=== PATIENT | male | born 1945 | race Hispanic/Latino ===

== ENCOUNTER → 2017-09-28 | Outpatient (CLI) | payer MEDICARE | END | disposition home or self-care (01) | LOC: RAH 10:45 | PROVIDERS: ATTEND Family Medicine | DX: M54.5 Low back pain (principal) | CPT/HCPCS: 72148 ==

== ENCOUNTER 2020-04-14 16:00 | Inpatient (IN) | payer MEDICARE, OTHER ==
[~2020-04-14] VITALS: Ht 160 cm; Wt 72.8 kg
[2020-04-14 19:28] LABS: APPEARANCE,URINE CLOUDY (CLEAR); BILIRUBIN,URINE NEGATIVE (NEGATIVE); COLOR,URINE YELLOW (YELLOW); GLUCOSE, URINE (UA) NEGATIVE (NEGATIVE); KETONES,URINE NEGATIVE (NEGATIVE); LEUKOCYTE ESTERASE ,URINE NEGATIVE (NEGATIVE); NITRATE,URINE NEGATIVE (NEGATIVE); OCCULT BLOOD,URINE LARGE (NEGATIVE); PROTEIN,URINE >=300 mg/dL (NEGATIVE)
[2020-04-14 19:38] LABS: BACTERIA,URINE Few /HPF (None Seen); MUCUS,URINE Few LPF (None Seen); RBC,URINE >100 /HPF (0-1); SQUAMOUS EPITHELIAL CELL,UR 0-2 /HPF (0-2)
[2020-04-14 20:19] LABS: ALBUMIN 2.7 g/dL (3.5-5.0); BILIRUBIN,TOTAL 0.3 mg/dL (0.2-1.0); CREATININE 1.6 mg/dL (0.5-1.5); TOTAL PROTEIN, SERUM 7.4 g/dL (6.0-8.3)
[2020-04-14 20:30] LABS: BASOPHILS % (AUTO) 0.8 % (0.0-5.0); EOSINOPHILS % (AUTO) 0.2 % (0.0-8.0); HEMATOCRIT 40.4 % (42-54); LYMPHOCYTES % (AUTO) 25.4 % (21.0-51.0); MEAN CORPUSCULAR HEMOGLOBIN 30.9 pg (27.0-33.0); MEAN CORPUSCULAR HGB CONC 34.2 g/dL (32.0-36.0); MEAN CORPUSCULAR VOLUME 90.4 fL (79-99); MONOCYTES % (AUTO) 11.3 % (3.0-13.0); NEUTROPHILS % (AUTO) 61.5 % (40.0-77.0); PLATELET COUNT (AUTO) 300 K/uL (130-400); PROTHROMBIN TIME 10.4 SEC (9.6-11.6); RED BLOOD CELL COUNT(AUTO) 4.47 MIL/uL (4.50-6.20); RED CELL DISTRIBUTION WIDTH 13.5 % (11.0-15.5); WHITE BLOOD COUNT (AUTO) 8.4 K/uL (4.8-10.8)
[2020-04-14 20:31] LABS: INR 0.96 (0.85-1.15); PARTIAL THROMBOPLASTIN TIME 28.5 SEC (26.3-35.5)
[2020-04-14] MEDS ORDERED: HYDRALAZINE HCL 20 MG/ML VIAL ONE (21:05)
[2020-04-14] MEDS ORDERED: MORPHINE SULFATE 2 MG/ML 1ML SYG ONE (21:06)
[2020-04-14] MEDS ORDERED: HYDRALAZINE HCL 20 MG/ML VIAL IV PRN (21:15)
[2020-04-14] MEDS ORDERED: MORPHINE SULFATE 2 MG/ML 1ML SYG IVP PRN (21:15)
[2020-04-14] MEDS: SODIUM CHLORIDE 0.9% 1000ML 1,000 ML IV SCH (21:33)
[2020-04-14] MEDS ORDERED: MAG HYDROX/AL HYDROX/SIMETH ES 30 ML SUSP UDCUP PO PRN (21:45)
[2020-04-14] MEDS ORDERED: MAG HYDROX/AL HYDROX/SIMETH 30 ML, LIDOCAINE HCL 2% VISCOUS 30 ML, DIPHENHYDRAMINE HCL ... PO PRN ×3 (21:45)
[2020-04-14] MEDS ORDERED: LIDOCAINE HCL 2% VISCOUS 30 ML, MAG HYDROX/AL HYDROX/SIMETH 30 ML, BELLADONNA-PHENOBARB... PO PRN ×3 (21:45)
[2020-04-14] MEDS ORDERED: NITROGLYCERIN 0.4 MG SL TAB SL PRN (21:45)
[2020-04-14] MEDS ORDERED: ONDANSETRON HCL 4 MG/2 ML VIAL IV PRN (21:45)
[2020-04-14] MEDS: CEFTRIAXONE SODIUM 1 GM IV SCH (21:45)
[2020-04-14] MEDS ORDERED: MORPHINE SULFATE 4 MG/1ML SYG IV PRN (21:45)
[2020-04-14] MEDS ORDERED: ZOLPIDEM TARTRATE 5 MG TAB PO PRN (21:45)
[2020-04-14] MEDS ORDERED: LACTULOSE 20 GM/30 ML UDCUP PO PRN (21:45)
[2020-04-14] MEDS ORDERED: DiphenhydrAMINE HCL 50 MG/ML VIAL IV PRN (21:45)
[2020-04-14] MEDS ORDERED: GUAIFENESIN-DM 200/20 MG 10 ML PO PRN (21:45)
[2020-04-14] MEDS ORDERED: MORPHINE SULFATE 2 MG/ML 1ML SYG IV PRN (21:45)
[2020-04-14] MEDS ORDERED: ACETAMINOPHEN 325 MG TAB PO PRN ×2 (21:45)
[2020-04-14] MEDS ORDERED: DIPHENHYDRAMINE HCL 25 MG CAPSULE PO PRN (21:45)
[2020-04-14] MEDS ORDERED: FAMOTIDINE/PF 20 MG/2 ML VIAL IV ONE (23:00)
[2020-04-14] MEDS ORDERED: CEFTRIAXONE SODIUM 1 GM ONE (23:00)
[2020-04-14] MEDS ORDERED: SODIUM CHLORIDE 0.9% 50 ML IV ONE (23:02)
[2020-04-15] MEDS ORDERED: MORPHINE SULFATE 4 MG/1ML SYG ONE (00:47)
[2020-04-15] MEDS: SODIUM CHLORIDE 0.9% 1000ML 1,000 ML IV SCH (05:33)
[2020-04-15] MEDS ORDERED: DEXAMETHASONE 4 MG TAB ONE (06:27)
[2020-04-15] MEDS ORDERED: AZITHROMYCIN 250 MG TABLET PO ONE (06:28)
[2020-04-15] MEDS: INSULIN LISPRO 100 UNIT/ML 3ML SQ SCH ×4 (07:30→20:45)
[2020-04-15] MEDS: FAMOTIDINE/PF 20 MG/2 ML VIAL IV SCH ×2 (09:00→20:44)
[2020-04-15 10:06] LABS: BASOPHILS % (AUTO) 0.6 % (0.0-5.0); EOSINOPHILS % (AUTO) 1.2 % (0.0-8.0); HEMATOCRIT 38.3 % (42-54); LYMPHOCYTES % (AUTO) 14.2 % (21.0-51.0); MEAN CORPUSCULAR HEMOGLOBIN 30.3 pg (27.0-33.0); MEAN CORPUSCULAR HGB CONC 33.7 g/dL (32.0-36.0); MEAN CORPUSCULAR VOLUME 89.9 fL (79-99); MONOCYTES % (AUTO) 11.6 % (3.0-13.0); NEUTROPHILS % (AUTO) 71.8 % (40.0-77.0); PLATELET COUNT (AUTO) 284 K/uL (130-400); RED BLOOD CELL COUNT(AUTO) 4.26 MIL/uL (4.50-6.20); RED CELL DISTRIBUTION WIDTH 13.3 % (11.0-15.5); WHITE BLOOD COUNT (AUTO) 10.2 K/uL (4.8-10.8)
[2020-04-15 10:21] LABS: ALBUMIN 2.4 g/dL (3.5-5.0); BILIRUBIN,TOTAL 0.4 mg/dL (0.2-1.0); CREATININE 1.6 mg/dL (0.5-1.5); POTASSIUM 4.4 mmol/L (3.5-5.1); TOTAL PROTEIN, SERUM 6.7 g/dL (6.0-8.3)
--- NOTE | 2020-04-15 15:00 | NUR ---
ZACK NOTE/IA UNABLE TO MEET WITH PATIENT, NEXT OF KIN CALLED, LOUISE NUNO. PER DAUGHTER, STATES SHE IS POA, [facility] D/T HISTORY OF STROKE, DEPENDENT WITH ADLS, NO USE OF DME AND FEELS SAFE TO RETURN HOME TO [facility]. PER DAUGHTER, IS MAKING ARRANGEMENTS TO TAKE PATIENT TO [place] IN 120 DAYS. Addendum: 04/16/20 at 1018 by JEREMIAS SHIN RN CM Amended: Links added.
[2020-04-15 15:35] VITALS: BP 125/66
[2020-04-15] MEDS ORDERED: CLOP75TA14 PO (19:35)
[2020-04-15] MEDS ORDERED: METO25TA6 PO (19:35)
[2020-04-15] MEDS ORDERED: ASPI-1012 PO (19:35)
[2020-04-15] MEDS ORDERED: MEMA10TA55 PO (19:35)
[2020-04-15] MEDS ORDERED: PRAZ2CAP2 PO (19:35)
[2020-04-15] MEDS ORDERED: FLUO20TA29 PO (19:35)
[2020-04-15] MEDS ORDERED: OLAN5TAB27 PO (19:35)
[2020-04-15] MEDS ORDERED: LEVE250T2 PO (19:35)
[2020-04-15] MEDS ORDERED: MELA1TAB17 PO (19:35)
[2020-04-15] MEDS ORDERED: AMLO2.5T4 PO (19:35)
[2020-04-15] MEDS ORDERED: THIA100V3 IJ (19:35)
[2020-04-15] MEDS ORDERED: GLIP5TAB11 PO (19:35)
[2020-04-15] MEDS ORDERED: MULT-1289 PO (19:35)
[2020-04-15] MEDS ORDERED: CHOL40002 PO (19:35)
[2020-04-15] MEDS ORDERED: ATOR10TA69 PO (19:35)
[2020-04-15 20:00] VITALS: BP 140/77
[2020-04-15] MEDS: METOPROLOL TARTRATE 25 MG TAB PO SCH (20:26)
[2020-04-15] MEDS: FLUOXETINE HCL 20 MG CAPSULE PO SCH (20:26)
[2020-04-15] MEDS: LEVETIRACETAM 250 MG TABLET PO SCH (20:26)
[2020-04-15] MEDS: PYRIDOXINE HCL PO SCH (20:33)
[2020-04-15] MEDS: MELATONIN PO SCH (20:33)
[2020-04-15] MEDS: CEFTRIAXONE SODIUM 1 GM IV SCH (20:43)
[2020-04-15] MEDS: ATORVASTATIN CALCIUM 10 MG TABLET PO SCH (20:43)
[2020-04-16] VITALS (8 sets, daily range): BP systolic 94–165; BP diastolic 59–83
--- NOTE | 2020-04-16 03:00 | NUR ---
bradley nguyen for patient's positive blood cultures 1 out of 2 sets with gram positive cocci.
--- NOTE | 2020-04-16 03:11 | NUR ---
bacilio nguyen called me back. she is aware of the gram positive cocci in the blood culture. no knew orders given. she will wait for sensitivity report.
[2020-04-16 05:06] LABS: BASOPHILS % (AUTO) 1.1 % (0.0-5.0); HEMATOCRIT 33.6 % (42-54); LYMPHOCYTES % (AUTO) 28.2 % (21.0-51.0); MEAN CORPUSCULAR HEMOGLOBIN 30.3 pg (27.0-33.0); MEAN CORPUSCULAR HGB CONC 33.3 g/dL (32.0-36.0); MEAN CORPUSCULAR VOLUME 90.8 fL (79-99); MONOCYTES % (AUTO) 11.8 % (3.0-13.0); NEUTROPHILS % (AUTO) 57.9 % (40.0-77.0); PLATELET COUNT (AUTO) 234 K/uL (130-400); RED CELL DISTRIBUTION WIDTH 13.4 % (11.0-15.5); WHITE BLOOD COUNT (AUTO) 7.2 K/uL (4.8-10.8)
[2020-04-16] MEDS ORDERED: SODIUM CHLORIDE 0.9% 1000ML 1,000 ML IV ONE (05:12)
[2020-04-16] MEDS ORDERED: SODIUM CHLORIDE 0.9% 1000ML 1,000 ML IV SCH (05:15)
[2020-04-16 05:43] LABS: ALBUMIN 2.2 g/dL (3.5-5.0); BILIRUBIN,TOTAL 0.3 mg/dL (0.2-1.0); CREATININE 1.7 mg/dL (0.5-1.5); MAGNESIUM 2.3 mg/dL (1.80-2.40); POTASSIUM 4.4 mmol/L (3.5-5.1); TOTAL PROTEIN, SERUM 6.2 g/dL (6.0-8.3)
[2020-04-16] MEDS: INSULIN LISPRO 100 UNIT/ML 3ML SQ SCH ×4 (06:05→20:15)
[2020-04-16] MEDS ORDERED: TAMSULOSIN HCL 0.4 MG CAP.ER.24H PO SCH (09:00)
[2020-04-16] MEDS ORDERED: CLOPIDOGREL BISULFATE 75 MG TAB PO SCH (09:00)
[2020-04-16] MEDS ORDERED: AZITHROMYCIN 250 MG TABLET PO SCH (09:00)
[2020-04-16] MEDS ORDERED: PRAZOSIN HCL 4 MG PO SCH (09:00)
[2020-04-16] MEDS ORDERED: ASPIRIN 325 MG TABLET PO SCH (09:00)
[2020-04-16] MEDS ORDERED: THIAMINE HCL 100 MG/ML 2ML VIAL IVP SCH (09:00)
[2020-04-16] MEDS ORDERED: OLANZAPINE 5 MG TAB PO SCH ×2 (09:00→21:00)
[2020-04-16] MEDS ORDERED: CHOLECALCIFEROL 100 MCG PO SCH (09:00)
[2020-04-16] MEDS ORDERED: GLIPIZIDE 5 MG TABLET PO SCH (09:00)
[2020-04-16] MEDS ORDERED: MULTIVITAMIN WITH MINERALS TABLET PO SCH (09:00)
[2020-04-16] MEDS ORDERED: AMLODIPINE BESYLATE 2.5 MG TAB PO SCH (09:00)
[2020-04-16] MEDS ORDERED: MEMANTINE HCL 5 MG TABLET PO SCH ×2 (09:00→21:00)
[2020-04-16] MEDS ORDERED: PRAZOSIN PO SCH (09:00)
[2020-04-16] MEDS ORDERED: ALBUTEROL INHALER 90MCG/INH IH PRN (09:15)
[2020-04-16] MEDS: FAMOTIDINE/PF 20 MG/2 ML VIAL IV SCH ×2 (09:16→20:13)
[2020-04-16] MEDS: LACTULOSE 20 GM/30 ML UDCUP PO SCH ×2 (09:16→20:13)
[2020-04-16] MEDS: LEVETIRACETAM 250 MG TABLET PO SCH ×2 (09:20→20:14)
[2020-04-16] MEDS: GLIPIZIDE 5 MG TABLET PO SCH ×2 (09:20→20:14)
[2020-04-16] MEDS: METOPROLOL TARTRATE 25 MG TAB PO SCH ×2 (09:20→20:14)
--- NOTE | 2020-04-16 09:57 | NUR ---
CONSULT CARDIAC CONSULT DR MERIDA FOR PT HAVING CP
--- NOTE | 2020-04-16 11:00 | NUR ---
DYSPHAGIA EVALUATION COMPLETED. +S/S OF ASPIRATION WITH THIN AND NECTAR-THICK LIQUIDS. RECOMMEND PUREED, HONEY-THICK LIQUIDS; PILLS CRUSHED WITH APPLESAUCE. RECOMMENDATIONS: DYSPHAGIA THERAPY 3-5X WEEK TO INCREASE ORAL MOTOR STRENGTH AND PHARYNGEAL SWALLOW: LTG#1: Pt WILL TOLERATE LEAST RESTRICTIVE DIET TO MEET NUTRITION/HYDRATION WITH NO S/S OF ASPIRATION. LTG#2: SKILLED EDUCATION Pt/FAMILY/STAFF STG#1: Pt WILL PARTICIPATE IN LARYNGEAL ELEVATION/EXCURSION EXERCISES WITH 80% ACCURACY. STG#2: Pt WILL PARTICIPATE IN TONGUE BASE RETRACTION EXERCISES WITH 80% ACCURACY. STG#3: Pt WILL PARTICIPATE IN ORAL MOTOR EXERCISES WITH 80% ACCURACY. STG#4: Pt WILL TOLERATE PUREED, HONEY-THICK LIQUIDS WITH NO OVERT S/S OF ASPIRATION. STG#5: PT WILL BE ABLE TO PARTICIPATE IN MBSS AFTER 2-4 WEEKS OF THERAPEUTIC INTERVENTION. STG#6: SKILLED EDUCATION Pt/FAMILY/STAFF. FIBER PICKER EDUCATED PT'S DAUGHTER ON HOW TO REACH HONEY-THICK LIQUIDS. SHE DEMONSTRATED UNDERSTANDING AND COMPLIANCE. FIBER PICKER PROVIDED DAUGHTER WITH CAN OF THICKENER. ALL QUESTIONS ANSWERED AT THIS TIME. Addendum: 04/16/20 at 1319 by NETTIE GONZALEZ, [facility] Amended: Links added.
--- NOTE | 2020-04-16 12:58 | NUR ---
1234 patient signed IM Letter, I faxed IM Letter to [phone] and placed in chart under consent tab.
--- NOTE | 2020-04-16 13:27 | NUR ---
RD NOTIFICATION Pt admitted with obstructive uropathy. S/p Stroke on 04/01. Pt s/p ST eval. +S/S aspiration. Diet order modified to Puree, Honey Thickened liquids. Pt family educated on thickening liquids. RD to continue to monitor. Stroke Nutrition Education Faxed to [phone]). Called unit to notify, No answer. RD to continue to monitor. Please notify as additional nutrition concerns arise. Thank you. Addendum: 04/16/20 at [address] Amended: Links added.
--- NOTE | 2020-04-16 14:15 | NUR ---
CM NOTE/[facility] MET WITH DAUGHTER IN ROOM, NONA COMPLETED FOR [facility]. PER MD, OK TO RETURN ONCE DISCHARGED FROM HOSPITAL. EMS SET UP, PENDING DC DATE, FLAGGED IN CHART. PRIMARY NURSE, [place], AWARE. PENDING MD RECOMMENDATIONS. POSSIBLE DC TODAY. CLINICAL PACKET FAXED AND EMAILED TO [facility] AT [facility]. PER MAYE, PATIENT APPROVED AND MAY RETURN TODAY OR TOMORROW VIA EMS.
--- NOTE | 2020-04-16 18:48 | NUR ---
[facility] PER DR. YU STATED, THAT THE FACILITY [facility] WHERE PATIENT IS FROM IS HAVING ISSUES WITH ELECTRICITY. WE ARE TO CALL LATER TO SEE IF ELECTRICITY IS BACK ON TO TRANSFER PATIENT.
--- NOTE | 2020-04-16 19:30 | NUR ---
PAPERS DISCHARGE PAPERS DONE AND PRINTED. CALLED [facility] AND SPOKE WITH [facility]. REPORT GIVEN. CALLED EMS FOR TRANSPORT.
[2020-04-16] MEDS: ATORVASTATIN CALCIUM 10 MG TABLET PO SCH (20:14)
[2020-04-16] MEDS: FLUOXETINE HCL 20 MG CAPSULE PO SCH (20:14)
--- NOTE | 2020-04-16 20:15 | NUR ---
MEDS SHIFT ASSESSMENT DONE, PLEASE REFER TO CHART. DUE MEDS ADMINISTERED. DISCHARGE PAPERS GIVEN TO DAUGHTER. AWAITING FOR EMS FOR TRANSPORT. Addendum: 04/16/20 at 2150 by JUSTICE EDWARDS RN RN Amended: Links added.
[2020-04-16] MEDS: MELATONIN PO SCH (20:18)
[2020-04-16] MEDS: PYRIDOXINE HCL PO SCH (20:18)
[2020-04-16] MEDS: CEFTRIAXONE SODIUM 1 GM IV SCH (20:18)
--- NOTE | 2020-04-16 22:25 | NUR ---
CALL EMS CALLED TO FOLLOW UP ON TRANSPORT FOR PT. ENERGY CONSERVATION TECHNICIAN WAS INFORMED THAT PT IS ON THE LIST BUT OTHER PATIENTS ARE AHEAD OF HIM. STILL WILL AWAIT FOR TRANSPORT.
--- NOTE | 2020-04-16 23:35 | NUR ---
D/C EMS IN TO TRANSPORT PT TO [facility]. DISCHARGED PT IN STABLE CONDITION. FAMILY ACCOMPANIED PT.
== END 2020-04-16 23:39 | disposition home or self-care (01) | DRG 693 ==
LOC: EDBD 16:00 → EDH 16:00 → EDHIP 21:33 → 3DH 04-15 15:06
PROVIDERS: ADMIT Internal Medicine; ATTEND Internal Medicine
DX: N13.2 Hydronephrosis with renal and ureteral calculous obstruction (principal); R53.2 Functional quadriplegia; I13.0 Hypertensive heart and chronic kidney disease with heart failure and stage 1 through stage 4 chronic kidney disease, or unspecified chronic kidney disease; I69.354 Hemiplegia and hemiparesis following cerebral infarction affecting left non-dominant side; I50.22 Chronic systolic (congestive) heart failure; D64.9 Anemia, unspecified; N17.9 Acute kidney failure, unspecified; N18.9 Chronic kidney disease, unspecified; K57.90 Diverticulosis of intestine, part unspecified, without perforation or abscess without bleeding; K56.41 Fecal impaction; I25.10 Atherosclerotic heart disease of native coronary artery without angina pectoris; F02.80 Dementia in other diseases classified elsewhere, unspecified severity, without behavioral disturbance, psychotic disturbance, mood disturbance, and anxiety; E11.40 Type 2 diabetes mellitus with diabetic neuropathy, unspecified; G30.9 Alzheimer's disease, unspecified; E11.22 Type 2 diabetes mellitus with diabetic chronic kidney disease; R13.10 Dysphagia, unspecified; Z20.828 Contact with and (suspected) exposure to other viral communicable diseases; J44.9 Chronic obstructive pulmonary disease, unspecified; Z95.5 Presence of coronary angioplasty implant and graft; Z87.891 Personal history of nicotine dependence; Z74.01 Bed confinement status; Z88.6 Allergy status to analgesic agent; Z88.8 Allergy status to other drugs, medicaments and biological substances; Z79.899 Other long term (current) drug therapy
CPT/HCPCS: 36415; 71045; 74176; 80053; 80177; 81001; 82948; 83735; 84100; 85025; 85610; 85730; 87040; 87077; 87088; 87186; 87426; 92610; 93005; G0378; J0360; J0696; J2270; J3411; J3490; J7030; J8540; U0003